=== PATIENT | female | born 2000 | race African-American/Black ===

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

== ENCOUNTER 2020-01-09 09:02 | Observation (INO) | payer MEDICAID ==
[~2020-01-09] VITALS: Ht 167.6 cm; Wt 73.0 kg
[2020-01-09 09:19] VITALS: BP 114/80
[2020-01-09 10:30] LABS: BASOPHILS % 0.3 % (0.0-2.0); EOSINOPHILS % 0.2 % (0.0-5.0); HEMATOCRIT. 30.1 % (36.0-48.0); HEMOGLOBIN. 10.1 g/dL (12.0-16.0); LYMPHOCYTES % 13.5 % (20.0-50.0); MEAN CORPUSCULAR HEMOGLOBIN 26.1 pg (28.0-32.0); MEAN CORPUSCULAR VOLUME 78.1 fL (81.0-99.0); MEAN PLATELET VOLUME 6.6 fl (7.4-10.4); MONOCYTES % 7.2 % (2.0-8.0); NEUTROPHILS % 78.8 % (40.0-76.0); PLATELET 300 x1000/uL (130-400); RED BLOOD CELL COUNT 3.85 mill/uL (4.2-5.4)
[2020-01-09 10:36] LABS: CHLORIDE 108 mEq/L (98-107)
== END 2020-01-09 13:35 | disposition home or self-care (01) ==
LOC: ER 09:02 → 8 EST LDRP 11:01
PROVIDERS: ADMIT Obstetrics & Gynecology; ATTEND Obstetrics & Gynecology
DX: O9A.22 Injury, poisoning and certain other consequences of external causes complicating childbirth (principal); S09.90XA Unspecified injury of head, initial encounter; Z3A.39 39 weeks gestation of pregnancy; Y04.0XXA Assault by unarmed brawl or fight, initial encounter; Y93.89 Activity, other specified; Y92.89 Other specified places as the place of occurrence of the external cause
CPT/HCPCS: 36415; 70450; 76805; 76818; 80053; 85025; 86850; 86900; 86901; 99285; G0378; 99281

== ENCOUNTER 2020-01-12 23:26 | Observation (INO) | payer MEDICAID | END 2020-01-13 01:30 | disposition home or self-care (01) | LOC: 8 EST LDRP 23:26 | PROVIDERS: ADMIT Obstetrics & Gynecology; ATTEND Obstetrics & Gynecology | DX: O62.9 Abnormality of forces of labor, unspecified (principal); O99.89 Other specified diseases and conditions complicating pregnancy, childbirth and the puerperium; M54.9 Dorsalgia, unspecified; Z3A.38 38 weeks gestation of pregnancy | CPT/HCPCS: 99281; G0378 ==

== ENCOUNTER 2020-01-16 13:59 | Observation (INO) | payer MEDICAID ==
[~2020-01-16] VITALS: Ht 167.6 cm; Wt 85.7 kg
== END 2020-01-16 15:37 | disposition home or self-care (01) ==
LOC: 8 EST LDRP 13:59
PROVIDERS: ADMIT Specialist; ATTEND Specialist
DX: O62.9 Abnormality of forces of labor, unspecified (principal); O26.893 Other specified pregnancy related conditions, third trimester; R10.9 Unspecified abdominal pain; Z3A.39 39 weeks gestation of pregnancy
CPT/HCPCS: G0378 ×2

== ENCOUNTER 2020-01-23 14:23 | Observation (INO) | payer MEDICAID ==
[~2020-01-23] VITALS: Ht 167.6 cm; Wt 85.7 kg
== END 2020-01-23 17:00 | disposition home or self-care (01) ==
LOC: 8 EST LDRP 14:23
PROVIDERS: ADMIT Obstetrics & Gynecology; ATTEND Obstetrics & Gynecology
DX: O62.9 Abnormality of forces of labor, unspecified (principal); O42.90 Premature rupture of membranes, unspecified as to length of time between rupture and onset of labor, unspecified weeks of gestation; O26.893 Other specified pregnancy related conditions, third trimester; R10.9 Unspecified abdominal pain; Z3A.39 39 weeks gestation of pregnancy
CPT/HCPCS: 76805; 76818; 99281; G0378

== ENCOUNTER 2020-01-31 11:14 | Emergency (ER) | payer MEDICAID ==
[~2020-01-31] VITALS: Ht 167.6 cm; Wt 87.0 kg
[~2020-01-31 11:14] MED LIST changes: +DOCU-150 PO; +FERR325T23 PO; +IBUP-2030 PO
[2020-01-31] MEDS ORDERED: ACETAMINOPHEN WITH CODEINE 300/30MG TABLET PO ONE (12:00)
[2020-01-31 12:06] VITALS: BP 123/82
== END 2020-01-31 12:20 | disposition home or self-care (01) ==
LOC: ER 11:14
DX: Z39.2 Encounter for routine postpartum follow-up (principal)
CPT/HCPCS: 99283

== ENCOUNTER 2020-01-31 22:09 | Emergency (ER) | payer MEDICAID ==
[~2020-01-31] VITALS: Ht 167.6 cm; Wt 80.0 kg
[2020-01-31] MEDS ORDERED: KETOROLAC 60MG/2ML VIAL IM ONE (23:30)
[2020-01-31] MEDS ORDERED: HYDROCODONE/ACETAMINOPHEN 10/325MG TABLET PO ONE (23:30)
[2020-02-01 00:18] VITALS: BP 118/55
== END 2020-02-01 00:22 | disposition home or self-care (01) ==
LOC: ER 22:09
DX: N93.9 Abnormal uterine and vaginal bleeding, unspecified (principal); I10 Essential (primary) hypertension; Z79.899 Other long term (current) drug therapy
CPT/HCPCS: 96372; 99283; J1885

== ENCOUNTER 2020-02-02 20:01 | Emergency (ER) | payer MEDICAID ==
[~2020-02-02] VITALS: Ht 167.6 cm; Wt 68.0 kg
[2020-02-02 23:59] VITALS: BP 120/52
== END 2020-02-02 23:59 | disposition home or self-care (01) ==
LOC: ER 20:01
DX: N99.840 Postprocedural hematoma of a genitourinary system organ or structure following a genitourinary system procedure (principal); I10 Essential (primary) hypertension; Z79.899 Other long term (current) drug therapy; F90.9 Attention-deficit hyperactivity disorder, unspecified type; Y83.8 Other surgical procedures as the cause of abnormal reaction of the patient, or of later complication, without mention of misadventure at the time of the procedure; Y92.018 Other place in single-family (private) house as the place of occurrence of the external cause
CPT/HCPCS: 99283

== ENCOUNTER 2020-02-21 12:41 | Emergency (ER) | payer MEDICAID ==
[~2020-02-21] VITALS: Ht 172.7 cm; Wt 73.0 kg
[2020-02-21] MEDS ORDERED: MAGNESIUM/ALUMINUM HYDROXIDE/SIMETHICONE 30ML UDC PO STA (13:04)
[2020-02-21] MEDS ORDERED: VISCOUS LIDOCAINE 2% 15 ML UDC PO STA (13:04)
[2020-02-21] MEDS ORDERED: DICYCLOMINE 10 MG/5 ML ORAL SYR PO STA (13:04)
[2020-02-21 13:34] LABS: BASOPHILS % 0.4 % (0.0-2.0); EOSINOPHILS % 1.1 % (0.0-5.0); HEMATOCRIT. 25.7 % (36.0-48.0); HEMOGLOBIN. 8.3 g/dL (12.0-16.0); LYMPHOCYTES % 25.6 % (20.0-50.0); MEAN CORPUSCULAR HEMOGLOBIN 24.3 pg (28.0-32.0); MEAN CORPUSCULAR VOLUME 74.9 fL (81.0-99.0); MEAN PLATELET VOLUME 5.9 fl (7.4-10.4); MONOCYTES % 6.6 % (2.0-8.0); NEUTROPHILS % 66.3 % (40.0-76.0); PLATELET 524 x1000/uL (130-400); RED BLOOD CELL COUNT 3.43 mill/uL (4.2-5.4); RED CELL DISTRIBUTION WIDTH 16.1 % (11.6-14.6)
[2020-02-21 13:41] LABS: CHLORIDE 107 mEq/L (98-107)
[2020-02-21 14:20] LABS: CLARITY URINE CLEAR (CLEAR); COLOR URINE YELLOW (YELLOW); KETONES URINE NEGATIVE (NEGATIVE); LEUKOCYTE ESTERASE URINE 2+ (NEGATIVE); NITRITE URINE NEGATIVE (NEGATIVE); OCCULT BLOOD URINE NEGATIVE (NEGATIVE); PROTEIN URINE NEGATIVE (NEGATIVE); SPECIFIC GRAVITY URINE 1.024 (1.005-1.030); UROBILINOGEN URINE 0.2 E.U./dL (0.2-1.0)
[2020-02-21 14:40] LABS: HCG SCREEN NEGATIVE
[2020-02-21 15:13] VITALS: BP 122/83
== END 2020-02-21 15:13 | disposition left against medical advice (07) ==
LOC: ER 12:41
DX: R10.13 Epigastric pain (principal); N30.00 Acute cystitis without hematuria; I10 Essential (primary) hypertension; Z59.0 Homelessness
CPT/HCPCS: 36415; 80053; 81003; 81025; 84703; 85025; 93005; 99284

== ENCOUNTER 2020-06-15 16:43 | Emergency (ER) | payer MEDICAID ==
[~2020-06-15] VITALS: Ht 167.6 cm; Wt 91.0 kg
[2020-06-15 16:50] VITALS: BP 122/82
== END 2020-06-15 17:30 | disposition home or self-care (01) ==
LOC: ER 16:43
DX: Z32.02 Encounter for pregnancy test, result negative (principal)
CPT/HCPCS: 81025; 99282

== ENCOUNTER 2020-06-23 14:23 | Emergency (ER) | payer MEDICAID ==
[~2020-06-23] VITALS: Ht 167.6 cm; Wt 68.0 kg
[2020-06-23 14:24] VITALS: BP 121/80
[2020-06-23 15:53] LABS: CLARITY URINE CLEAR (CLEAR); COLOR URINE YELLOW (YELLOW); KETONES URINE NEGATIVE (NEGATIVE); LEUKOCYTE ESTERASE URINE TRACE (NEGATIVE); NITRITE URINE NEGATIVE (NEGATIVE); OCCULT BLOOD URINE NEGATIVE (NEGATIVE); PH URINE >=9.0 (4.5-8.0); PROTEIN URINE NEGATIVE (NEGATIVE); SPECIFIC GRAVITY URINE 1.023 (1.005-1.030)
[2020-06-23 16:18] LABS: UCG SCREEN INDETERMINATED
== END 2020-06-23 18:30 | disposition left against medical advice (07) ==
LOC: ER 14:23
DX: R10.30 Lower abdominal pain, unspecified (principal); Z79.899 Other long term (current) drug therapy
CPT/HCPCS: 81003; 81025; 93005; 99284

== ENCOUNTER 2020-11-05 18:44 | Emergency (ER) | payer MEDICAID ==
[~2020-11-05] VITALS: Ht 167.6 cm; Wt 80.0 kg
[2020-11-05] MEDS ORDERED: SODIUM CHLORIDE 0.9% 1,000 ML IV ONE (21:15)
[2020-11-05] MEDS ORDERED: ONDANSETRON HCL 4MG/2ML INJ IV STA (21:15)
[2020-11-05 21:35] LABS: CLARITY URINE CLOUDY (CLEAR); COLOR URINE YELLOW (YELLOW); KETONES URINE TRACE (NEGATIVE); LEUKOCYTE ESTERASE URINE NEGATIVE (NEGATIVE); NITRITE URINE NEGATIVE (NEGATIVE); OCCULT BLOOD URINE NEGATIVE (NEGATIVE); PROTEIN URINE TRACE (NEGATIVE); SPECIFIC GRAVITY URINE 1.042 (1.005-1.030)
[2020-11-05 21:53] LABS: BASOPHILS % 0.4 % (0.0-2.0); EOSINOPHILS % 0.7 % (0.0-5.0); HEMATOCRIT. 29.6 % (36.0-48.0); HEMOGLOBIN. 10.3 g/dL (12.0-16.0); LYMPHOCYTES % 30.2 % (20.0-50.0); MEAN CORPUSCULAR HEMOGLOBIN 25.8 pg (28.0-32.0); MEAN CORPUSCULAR VOLUME 74.2 fL (81.0-99.0); MEAN PLATELET VOLUME 6.5 fl (7.4-10.4); MONOCYTES % 6.4 % (2.0-8.0); NEUTROPHILS % 62.3 % (40.0-76.0); PLATELET 436 x1000/uL (130-400); RED BLOOD CELL COUNT 3.99 mill/uL (4.2-5.4); RED CELL DISTRIBUTION WIDTH 17.1 % (11.6-14.6)
[2020-11-05 22:11] LABS: CHLORIDE 106 mEq/L (98-107)
[2020-11-05 22:37] LABS: B-HCG QUANTITATIVE 22828 mIU/mL (<3)
[2020-11-06] MEDS ORDERED: ONDA4TAB11 PO (01:24)
[2020-11-06] MEDS ORDERED: PNV1TABL50 MT (01:24)
[2020-11-06 01:45] VITALS: BP 122/78
== END 2020-11-06 02:01 | disposition home or self-care (01) ==
LOC: ER 18:44
DX: O26.611 Liver and biliary tract disorders in pregnancy, first trimester (principal); K80.50 Calculus of bile duct without cholangitis or cholecystitis without obstruction; O99.011 Anemia complicating pregnancy, first trimester; D50.9 Iron deficiency anemia, unspecified; O26.891 Other specified pregnancy related conditions, first trimester; I10 Essential (primary) hypertension; J45.909 Unspecified asthma, uncomplicated; F12.10 Cannabis abuse, uncomplicated; Z79.899 Other long term (current) drug therapy; Z3A.08 8 weeks gestation of pregnancy
CPT/HCPCS: 36415; 76705; 76805; 80053; 81003; 83690; 84702; 85025; 86850; 86900; 86901; 96361; 96374; 99285; J2405; J7030

== ENCOUNTER 2020-11-06 16:49 | Emergency (ER) | payer MEDICAID ==
[~2020-11-06 16:49] MED LIST changes: +ONDA4TAB11 PO; +PNV1TABL50 MT
== END 2020-11-06 17:31 | disposition left against medical advice (07) ==
LOC: ER 16:49
DX: Z53.21 Procedure and treatment not carried out due to patient leaving prior to being seen by health care provider (principal)

== ENCOUNTER 2020-11-21 22:44 | Observation (INO) | payer MEDICAID ==
[~2020-11-21] VITALS: Ht 175.3 cm; Wt 72.1 kg
[2020-11-22] MEDS ORDERED: LACTATED RINGERS 1,000 ML IV SCH (00:15)
== END 2020-11-22 02:00 | disposition home or self-care (01) ==
LOC: 8 EST LDRP 22:44
PROVIDERS: ADMIT Obstetrics & Gynecology; ATTEND Obstetrics & Gynecology
DX: O26.892 Other specified pregnancy related conditions, second trimester (principal); R10.13 Epigastric pain; R10.30 Lower abdominal pain, unspecified; O62.9 Abnormality of forces of labor, unspecified; O21.2 Late vomiting of pregnancy; Z3A.25 25 weeks gestation of pregnancy
CPT/HCPCS: 59025; 96360; G0378; 99281

== ENCOUNTER 2020-12-02 17:15 | Observation (INO) | payer MEDICAID ==
[~2020-12-02] VITALS: Ht 170.2 cm; Wt 72.1 kg
[2020-12-02] MEDS ORDERED: PREN1TAB78 MT (19:15)
[2020-12-02] MEDS ORDERED: PNV11TAB5 PO (19:34)
== END 2020-12-02 20:10 | disposition home or self-care (01) ==
LOC: 8 EST A/PP 17:15
PROVIDERS: ADMIT Obstetrics & Gynecology; ATTEND Obstetrics & Gynecology
DX: O21.2 Late vomiting of pregnancy (principal); Z3A.27 27 weeks gestation of pregnancy; Y04.0XXA Assault by unarmed brawl or fight, initial encounter; Y93.89 Activity, other specified; Y92.89 Other specified places as the place of occurrence of the external cause
CPT/HCPCS: 59025; 76805; 76818; G0378; 99281

== ENCOUNTER 2020-12-16 08:26 | Observation (INO) | payer MEDICAID ==
[~2020-12-16] VITALS: Ht 170.2 cm; Wt 85.7 kg
[~2020-12-16 08:26] MED LIST changes: +PNV11TAB5 PO; +PREN1TAB78 MT
== END 2020-12-16 10:40 | disposition home or self-care (01) ==
LOC: 8 EST LDRP 08:26
PROVIDERS: ADMIT Obstetrics & Gynecology; ATTEND Obstetrics & Gynecology
DX: O62.9 Abnormality of forces of labor, unspecified (principal); Z3A.29 29 weeks gestation of pregnancy
CPT/HCPCS: 59025; G0378; 99281

== ENCOUNTER 2020-12-18 11:15 | Observation (INO) | payer MEDICAID ==
[~2020-12-18] VITALS: Ht 162.6 cm; Wt 91.6 kg
[2020-12-18] MEDS ORDERED: MAGNESIUM/ALUMINUM HYDROXIDE/SIMETHICONE 30ML UDC PO ONE (11:45)
== END 2020-12-18 13:20 | disposition home or self-care (01) ==
LOC: 8 EST LDRP 11:15 → UNDOADMOB 11:15
PROVIDERS: ADMIT Obstetrics & Gynecology; ATTEND Obstetrics & Gynecology
DX: O26.893 Other specified pregnancy related conditions, third trimester (principal); R10.10 Upper abdominal pain, unspecified; Z3A.29 29 weeks gestation of pregnancy
CPT/HCPCS: 59025; G0378; 99281

== ENCOUNTER 2020-12-31 05:18 | Observation (INO) | payer MEDICAID ==
[~2020-12-31] VITALS: Ht 167.6 cm; Wt 81.6 kg
[2020-12-31] MEDS ORDERED: PREN-135 PO (06:15)
[2020-12-31] MEDS: LACTATED RINGERS 1,000 ML IV SCH ×2 (06:55→08:35)
[2020-12-31 07:13] LABS: CLARITY URINE CLOUDY (CLEAR); COLOR URINE DK YELLOW (YELLOW); KETONES URINE 3+ (NEGATIVE); LEUKOCYTE ESTERASE URINE 1+ (NEGATIVE); NITRITE URINE NEGATIVE (NEGATIVE); OCCULT BLOOD URINE NEGATIVE (NEGATIVE); PROTEIN URINE 1+ (NEGATIVE); SPECIFIC GRAVITY URINE 1.036 (1.005-1.030)
[2020-12-31] MEDS ORDERED: CEFAZOLIN 2,000 MG in DEXT 5% WATER 100 ML IV NR (08:45)
== END 2020-12-31 13:33 | disposition home or self-care (01) ==
LOC: 8 EST LDRP 05:18
PROVIDERS: ADMIT Obstetrics & Gynecology; ATTEND Obstetrics & Gynecology
DX: O26.893 Other specified pregnancy related conditions, third trimester (principal); R10.2 Pelvic and perineal pain; Z3A.31 31 weeks gestation of pregnancy
CPT/HCPCS: 59025; 76815; 76818; 81003; 82731; 96361; 96365; G0378; J0690; J7060; J7120

== ENCOUNTER 2021-01-07 01:50 | Observation (INO) | payer MEDICAID ==
[~2021-01-07] VITALS: Ht 167.6 cm; Wt 86.2 kg
[~2021-01-07 01:50] MED LIST changes: +PREN-135 PO
[2021-01-07] MEDS ORDERED: LACTATED RINGERS 1,000 ML IV SCH (04:00)
[2021-01-07] MEDS ORDERED: MAGNESIUM/ALUMINUM HYDROXIDE/SIMETHICONE 30ML UDC PO NR (04:00)
== END 2021-01-07 06:30 | disposition home or self-care (01) ==
LOC: 8 EST LDRP 01:50
PROVIDERS: ADMIT Obstetrics & Gynecology; ATTEND Obstetrics & Gynecology
DX: O62.9 Abnormality of forces of labor, unspecified (principal); Z3A.32 32 weeks gestation of pregnancy
CPT/HCPCS: 59025; 96360; 96361; G0378; 99281

== ENCOUNTER 2021-01-09 08:12 | Observation (INO) | payer MEDICAID ==
[~2021-01-09] VITALS: Ht 167.6 cm; Wt 72.6 kg
[2021-01-09] MEDS ORDERED: LACTATED RINGERS 1,000 ML IV SCH (09:00)
[2021-01-09 09:11] LABS: CLARITY URINE CLOUDY (CLEAR); COLOR URINE DARK YELLOW (YELLOW); KETONES URINE TRACE (NEGATIVE); LEUKOCYTE ESTERASE URINE NEGATIVE (NEGATIVE); NITRITE URINE NEGATIVE (NEGATIVE); OCCULT BLOOD URINE NEGATIVE (NEGATIVE); PH URINE 5.5 (4.5-8.0); PROTEIN URINE TRACE (NEGATIVE); SPECIFIC GRAVITY URINE 1.031 (1.005-1.030); UROBILINOGEN URINE 0.2 E.U./dL (0.2-1.0)
== END 2021-01-09 13:00 | disposition home or self-care (01) ==
LOC: 8 EST LDRP 08:12
PROVIDERS: ADMIT Obstetrics & Gynecology; ATTEND Obstetrics & Gynecology
DX: O26.893 Other specified pregnancy related conditions, third trimester (principal); R10.9 Unspecified abdominal pain; Z3A.32 32 weeks gestation of pregnancy
CPT/HCPCS: 59025; 76815; 76818; 81003; 96360; 96361; G0378; J7120

== ENCOUNTER 2021-01-16 14:14 | Observation (INO) | payer MEDICAID ==
[~2021-01-16] VITALS: Ht 167.6 cm; Wt 86.2 kg
[~2021-01-16 14:14] MED LIST changes: -PREN-135 PO
[2021-01-16] MEDS ORDERED: LACTATED RINGERS 1,000 ML IV SCH (15:00)
[2021-01-16] MEDS ORDERED: ONDANSETRON HCL 4MG/2ML INJ IV PRN (15:00)
== END 2021-01-16 15:40 | disposition home or self-care (01) ==
LOC: 8EST NSY 14:14
PROVIDERS: ADMIT Obstetrics & Gynecology; ATTEND Obstetrics & Gynecology
DX: O99.891 Other specified diseases and conditions complicating pregnancy (principal); M54.5 Low back pain; O26.893 Other specified pregnancy related conditions, third trimester; R11.0 Nausea; Z3A.33 33 weeks gestation of pregnancy
CPT/HCPCS: 96360; G0378; 96361; 99281; J7120

== ENCOUNTER 2021-01-27 10:43 | Observation (INO) | payer MEDICAID ==
[~2021-01-27 10:43] MED LIST changes: -IBUP-2030 PO; -ONDA4TAB11 PO; -PNV11TAB5 PO
== END 2021-01-27 12:30 | disposition home or self-care (01) ==
LOC: 8 EST LDRP 10:43
PROVIDERS: ADMIT Specialist; ATTEND Specialist
DX: O62.9 Abnormality of forces of labor, unspecified (principal); Z3A.35 35 weeks gestation of pregnancy
CPT/HCPCS: G0378